=== PATIENT | female | born 1995 | race Caucasian/White ===

== ENCOUNTER 2017-08-05 05:10 | Emergency (ER) | payer OTHER ==
[2017-08-05 05:36] VITALS: BMI 28.1
--- NOTE | 2017-08-05 06:19 | PDOC ---
History of Present Illness - General History Source: Patient Exam Limitations: No Limitations - History of Present Illness Initial Comments: 08/05/17 06:26 The patient is a 21 year old female, 26 weeks , with no other significant past medical history, who presents with chills, subjective fever, generalized body aches, cough and sore throat for 3 days. She reports her upper extremities are weak and sore. She denies abdominal pain. She denies sick contacts. Allergies: NKDA <Lety Pierre - Last Filed: 08/05/17 06:26> <Rosetta Rojas - Last Filed: 08/05/17 06:45> - General Chief Complaint: Sore Throat Stated Complaint: FEVER,THROAT PAIN Time Seen by Provider: 08/05/17 05:24 Past History - Suicide/Smoking/Psychosocial Hx Smoking History: Never smoked Have you smoked in the past 12 months: No Information on smoking cessation initiated: No Hx Alcohol Use: No Drug/Substance Use Hx: No <Rosetta Rojas - Last Filed: 08/05/17 06:45> Review of Systems - Review of Systems Able to Perform ROS?: Yes Comments:: 08/05/17 06:34 GENERAL/CONSTITUTIONAL: (+) subjective fever, chills and generalized weakness. HEAD, EYES, EARS, NOSE AND THROAT: (+) sore throat. No change in vision. No ear pain or discharge. CARDIOVASCULAR: No chest pain or shortness of breath. RESPIRATORY: (+) cough, No wheezing, or hemoptysis. GASTROINTESTINAL: No nausea, vomiting, diarrhea or constipation. GENITOURINARY: No dysuria, frequency, or change in urination. MUSCULOSKELETAL: (+) diffuse body aches and upper extremity "weakness". No joint or muscle swelling. No neck or back pain. SKIN: No rash NEUROLOGIC: No headache, vertigo, loss of consciousness, or change in strength/ sensation. ENDOCRINE: No increased thirst. No abnormal weight change. HEMATOLOGIC/LYMPHATIC: No anemia, easy bleeding, or history of blood clots. ALLERGIC/IMMUNOLOGIC: No hives or skin allergy. <Lety Pierre - Last Filed: 08/05/17 06:26> *Physical Exam - Vital Signs Last Vital Signs Temp Pulse Resp BP Pulse Ox 100.2 F H 118 H 20 135/74 97 08/05/17 05:34 08/05/17 05:34 08/05/17 05:34 08/05/17 05:34 08/05/17 05:34 - Physical Exam Comments: 08/05/17 06:36 GENERAL: Awake, alert, and fully oriented, in no acute distress HEAD: No signs of trauma EYES: PERRLA, EOMI, sclera anicteric, conjunctiva clear ENT: (+) nasal congestion. Auricles normal inspection, hearing grossly normal, nares patent, oropharynx clear without exudates. Moist mucosa NECK: Normal ROM, supple, no lymphadenopathy, JVD, or masses LUNGS: Breath sounds equal, clear to auscultation bilaterally. No wheezes, and no crackles HEART: Regular rate and rhythm, normal S1 and S2, no murmurs, rubs or gallops ABDOMEN: Soft, nontender, normoactive bowel sounds. No guarding, no rebound. No masses EXTREMITIES: Normal range of motion, no edema. No clubbing or cyanosis. No cords, erythema, or tenderness NEUROLOGICAL: Cranial nerves II through XII grossly intact. Normal speech, normal gait SKIN: Warm, Dry, normal turgor, no rashes or lesions noted. <Lety Pierre - Last Filed: 08/05/17 06:26> - Vital Signs Last Vital Signs Temp Pulse Resp BP Pulse Ox 100.2 F H 118 H 20 135/74 97 08/05/17 05:34 08/05/17 05:34 08/05/17 05:34 08/05/17 05:34 08/05/17 05:34 <Rosetta Rojas - Last Filed: 08/05/17 06:45> Medical Decision Making - Medical Decision Making 08/05/17 06:43 Pt is and tachycardic and she has sore throat and nasal congestion. Last dose of tylenol was at 10PM. She will be given tylenol here. SHe is eating and drinking sufficiently. No need for IVNSS or blood tests at this time. Pt will get strep culture. No flu cultures available in the hospital at this time. Pt will be signed out to the day team. <Rosetta Rojas - Last Filed: 08/05/17 06:45> *DC/Admit/Observation/Transfer - Attestations Scribe Attestion: 08/05/17 06:36 Documentation prepared by Lety Pierre, acting as medical genetics director for Rosetta Rojas MD <Lety Pierre - Last Filed: 08/05/17 06:26> <Rosetta Rojas - Last Filed: 08/05/17 06:45> - Referrals Referrals: Sharita Estrella PA [Primary Care Provider] - - Patient Instructions - Post Discharge Activity
[2017-08-05] MEDS ORDERED: ACETAMINOPHEN 325 MG TABLET (FP) PO ONE (06:25)
[2017-08-05 07:53] LABS: URINE APPEARANCE CLEAR; URINE BILIRUBIN NEGATIVE (NEGATIVE); URINE BLOOD NEGATIVE (NEGATIVE); URINE COLOR YELLOW; URINE GLUCOSE (UA) NEGATIVE (NEGATIVE); URINE KETONE NEGATIVE (NEGATIVE); URINE LEUK ESTERASE NEGATIVE (NEGATIVE); URINE NITRITE NEGATIVE (NEGATIVE); URINE UROBILINOGEN NEGATIVE mg/dL (0.2-1.0)
[2017-08-05 07:54] LABS: URINE PROTEIN 1+ (NEGATIVE)
[2017-08-05 07:55] LABS: EPI CELLS RARE /HPF (FEW); URINE MUCUS RARE
[2017-08-05] MEDS ORDERED: SODIUM CHLORIDE FOR INHALATION 3 ML VIAL.NEB IH ONE (07:59)
--- NOTE | 2017-08-05 07:59 | PDOC ---
*Physical Exam - Vital Signs Last Vital Signs Temp Pulse Resp BP Pulse Ox 100.2 F H 118 H 20 135/74 97 08/05/17 05:34 08/05/17 05:34 08/05/17 05:34 08/05/17 05:34 08/05/17 05:34 - Physical Exam Comments: 08/05/17 07:48 low-grade fever 100.2 at triage, RR normal, O2 98% on room air well appearing, nasal congestion throat clear, no exudate or swelling + Submandibular LAD, neck supple lungs clear, heart normal abd gravid but nontender no edema no rash/extremity swelling Medical Decision Making - Medical Decision Making 08/05/17 07:52 Received signout on this healthy 21-year-old female at 26 weeks gestation of otherwise uneventful who presents with 3 days of upper respiratory infection symptoms with nasal congestion/rhinorrhea, cough with occasional sputum, chills and body aches. Has been taking Tylenol with only temporary relief, presents for evaluation. No recent travel, no known sick contacts, did not get influenza vaccinations. Low-grade fever, normal O2 sat lungs clear, throat clear 21y/o F woman with URI sxs, bodyaches, fever for 3 days. Viral appearing without evidence of strep pharyngitis or pneumonia, could very well be consistent with influenza. Flus swab, Throat swab tylenol for fever saline nebulizer reassess, then will proceed to L+D for monitoring. 08/05/17 08:47 influenza A positive. feels better after tylenol and nebs, VS remain stable. Discussed precautions, will start tamiflu therapy, transfer to L+D for monitoring. *DC/Admit/Observation/Transfer Diagnosis at time of Disposition: Influenza A Upper respiratory infection Qualifiers: URI type: unspecified URI Qualified Code(s): J06.9 - Acute upper respiratory infection, unspecified - Discharge Dispostion Disposition: HOME Condition at time of disposition: Stable - Prescriptions Prescriptions: Oseltamivir Phosphate [Tamiflu] 75 mg PO BID #10 capsule - Referrals Referrals: Sharita Estrella PA [Primary Care Provider] - - Patient Instructions Printed Discharge Instructions: DI for Influenza -- Adult Additional Instructions: Activity as tolerated. Stay hydrated. Tylenol 1000 mg every 8 hours as needed for fever/pain. Tests today confirm POSITIVE INFLUENZA A. Take Tamiflu as prescribed for 5 days. Use saline sprays/air humidifier to help with congestion. Influenza is contagious, so take precautions as discussed. Continue your medications as previously prescribed by your physician. You are going directly to the Labor and Delivery floor for monitoring - Instructions as per MATERIAL EXPEDITER. You should follow up with your primary doctor and MATERIAL EXPEDITER as soon as possible regarding today's emergency department visit. Return to the emergency department for any new or concerning symptoms, particularly persistent or high fevers, difficulty breathing or chest pain, severe weakness, cramping or bleeding. - Post Discharge Activity
[2017-08-05] MEDS ORDERED: OSELTAMIVIR PHOSPHATE 75 MG CAPSULE PO ONE (08:05)
[2017-08-05] MEDS ORDERED: OSELTAMIVIR PHOSPHATE 75 MG CAPSULE ONE (08:32)
[2017-08-05 10:06] VITALS: BP 105/75; PULSE 105; TEMP 99.6
== END 2017-08-05 10:05 | disposition home or self-care (01) ==
LOC: JER 05:10
PROC: 3E0F7GC Introduction of Other Therapeutic Substance into Respiratory Tract, Via Natural or Artificial Opening (ICD-10-PCS; principal; 2017-08-05)
DX: O99.89 Other specified diseases and conditions complicating pregnancy, childbirth and the puerperium (principal); O98.512 Other viral diseases complicating pregnancy, second trimester; J10.1 Influenza due to other identified influenza virus with other respiratory manifestations; J06.9 Acute upper respiratory infection, unspecified; Z3A.26 26 weeks gestation of pregnancy
CPT/HCPCS: 81003; 81015; 87070; 87086; 87430; 87804; 94640; 99283-25

== ENCOUNTER 2017-11-19 09:45 | Inpatient (IN) | payer OTHER ==
--- NOTE | 2017-11-19 10:33 | PN ---
Progress Note (short form) - Note Progress Note: cx 3 cm, 8-0 vx -2 mi, fhr cat 1, irregular contraction
--- NOTE | 2017-11-19 10:42 | HP ---
Past Medical History - Primary Care Physician PCP:: Aleksandar Ford - Admission Chief Complaint: 40.2 weeks, labor History of Present Illness: 22 yo f 40,2 weeks, c/o contraction since midnight today, no rom, no bleeding . cx 3 cm 80 vx -2 mi, fhr cat 1, irregular contraction, care [facility] , no complication History Source: Patient Limitations to Obtaining History: Language Barrier - Past Medical History ...: 1 ...Para: 0 ...EDC by Sono: 11/15/17 Infectious Disease: Yes: Other (txed for flu with Tamiflu) - Past Surgical History Hx Myomectomy: No Hx Transabdominal Cerclage: No - Smoking History Smoking history: Never smoked Have you smoked in the past 12 months: No - Alcohol/Substance Use Hx Alcohol Use: No - Social History Usual Living Arrangement: Yes: With Spouse History of Recent Travel: No Home Medications - Allergies Allergies/Adverse Reactions: Allergies Allergy/AdvReac Type Severity Reaction Status Date / Time No Known Allergies Allergy Verified 08/05/17 07:05 - Home Medications Home Medications: Ambulatory Orders Oseltamivir Phosphate [Tamiflu] 75 mg PO BID #10 capsule 08/05/17 Review of Systems - Review of Systems Constitutional: reports: No Symptoms Eyes: reports: No Symptoms HENT: reports: No Symptoms Neck: reports: No Symptoms Cardiovascular: reports: No Symptoms Respiratory: reports: No Symptoms Gastrointestinal: reports: No Symptoms Genitourinary: reports: No Symptoms Breasts: reports: No Symptoms Reported Musculoskeletal: reports: No Symptoms Integumentary: reports: No Symptoms Neurological: reports: No Symptoms Endocrine: reports: No Symptoms Hematology/Lymphatic: reports: No Symptoms Psychiatric: reports: No Symptoms Physical Exam - Maternity Constitutional: Yes: Well Nourished, No Distress, Calm Eyes: Yes: WNL, Conjunctiva Clear, EOM Intact HENT: Yes: WNL, Atraumatic, Normocephalic Neck: Yes: WNL, Supple, Trachea Midline Cardiovascular: Yes: WNL, Regular Rate and Rhythm Breast(s): Yes: WNL - Abdominal Exam/OB Fundal Height: 40 Number of Fetuses: Single Presentation: Vertex Contractions: Yes Regularity: Irregular Intensity: Moderate Monitor Mode: External Heart Rate Location: [facility] Category: I Accelerations: Uniform Decelerations: None - Vaginal Exam/OB Vaginal Bleediing: Bloody Show Speculum Exam: No Dilatation (cm): 3 cm Effacement (%): 80 Amniotic Membrane Status: Intact Presentation: Vertex/Position Station: -2 - Physical Exam Musculoskeletal: Yes: WNL Extremities: Yes: WNL Edema: LLE: Trace, RLE: Trace Deep Tendon Reflex Grade: Normal +2 ...Motor Strength: WNL Psychiatric: Yes: WNL Hemorrhage Risk Assessment - Risk Factors Medium Risk Factors: Yes: None High Risk Factors: Yes: None Risk Score: 1 Risk Level: Medium Risk Problem List - Problems (1) Post term over 40 weeks Code(s): O48.0 - POST-TERM (2) Labor established Code(s): MPE0605 - Assessment/Plan admit, fhm, pain mamnagement, admit for vaginal delivery
[2017-11-19] MEDS ORDERED: BUTORPHANOL TARTRATE 1 MG/ML VIAL IVPUSH ONE (10:45)
[2017-11-19] MEDS ORDERED: PROMETHAZINE HCL 25 MG/1 ML VIAL IVPUSH ONE (10:45)
[2017-11-19] MEDS ORDERED: DEXTROSE 5%-LACTATED RINGERS 1,000 ML IV SCH (10:45)
[2017-11-19] MEDS ORDERED: PROMETHAZINE HCL 25 MG/1 ML VIAL IVPB ONE (11:00)
[2017-11-19 11:23] VITALS: BMI 32.1
[2017-11-19 11:26] LABS: BASO % 0.1 % (0-2.0); EOS % 0.5 % (0-4.5); HEMATOCRIT 36.4 % (32.4-45.2); MCH 29.7 pg (25.7-33.7); MEAN PLT VOLUME 9.2 fl (7.5-11.1); MONO % 3.6 % (3.8-10.2); NEUT % 86.8 % (42.8-82.8); PLATELET COUNT 216 K/MM3 (134-434); RBC 4.05 M/mm3 (3.60-5.2); RDW 16.1 % (11.6-15.6)
[2017-11-19] MEDS ORDERED: OXYTOCIN 30 UNITS in 0.9% NS 30 UNIT/500 ML INFUS.BAG IVPB ONE ×2 (11:40→12:23)
[2017-11-19 11:48] LABS: INR 0.96 (0.82-1.09); PROTHROMBIN TIME (PATIENT) 10.9 SEC (9.7-13.0)
[2017-11-19 11:51] LABS: ACTIVATED PTT 26.7 SECONDS (26.9-34.4)
[2017-11-19 12:20] LABS: ANION GAP 13 (8-16); BLOOD UREA NITROGEN 12 mg/dL (7-18); CALCIUM 9.4 mg/dL (8.5-10.1); CHLORIDE 106 mmol/L (98-107); CO2 22 mmol/L (21-32); CREATININE 0.7 mg/dL (0.55-1.02); GLUCOSE,RANDOM 117 mg/dL (74-106); POTASSIUM 4.3 mmol/L (3.5-5.1); SODIUM 141 mmol/L (136-145)
[2017-11-19] MEDS ORDERED: OXYTOCIN 30 UNITS in 0.9% NS 30 UNIT/500 ML INFUS.BAG IVPB SCH (14:00)
[2017-11-19] MEDS ORDERED: BUTORPHANOL TARTRATE 1 MG/ML VIAL ONE ×2 (14:55)
[2017-11-19] MEDS ORDERED: PROMETHAZINE HCL 25 MG/1 ML VIAL ONE (14:56)
--- NOTE | 2017-11-19 18:27 | PN ---
Progress Note (short form) - Note Progress Note: 450 pm, cx 5 cm 80 vx -2 srom clear , fhr cat 1, regular contraction Problem List - Problems (1) Post term over 40 weeks Code(s): O48.0 - POST-TERM (2) Labor established Code(s): [id number] -
--- NOTE | 2017-11-19 19:54 | PN ---
Progress Note (short form) - Note Progress Note: cx 6 cm 80 vx -1, fhr cat1 Problem List - Problems (1) Post term over 40 weeks Code(s): O48.0 - POST-TERM (2) Labor established Code(s): [id number] -
[2017-11-19] MEDS ORDERED: FENTANYL/BUPIVACAINE/NS/PF - PCEA - 50 ML DISP.SYRIN EP ONE (19:57)
[2017-11-19] MEDS ORDERED: ELECTROLYTE-148 SOLN 1,000 ML IV SCH (20:00)
[2017-11-19] MEDS ORDERED: NALOXONE HCL 0.4 MG/ML VIAL IVPUSH PRN (20:41)
[2017-11-19] MEDS ORDERED: FENTANYL/BUPIVACAINE/NS/PF - PCEA - 50 ML DISP.SYRIN EP SCH (20:45)
[2017-11-19] MEDS ORDERED: AMPICILLIN SODIUM 2 GM VIAL ONE (21:34)
[2017-11-19] MEDS ORDERED: LIDOCAINE HCL 1% PRESERVATIVE FREE - 30ML VIAL ONE (21:34)
[2017-11-19] MEDS ORDERED: AMPICILLIN - 2 GM in SODIUM CHLORIDE 100 ML IVPB ONE (21:35)
[2017-11-19] MEDS ORDERED: OXYTOCIN 20 UNITS in 0.9% NS 20 UNIT/1,000 ML INFUS.BAG IV ONE (21:35)
[2017-11-19] MEDS ORDERED: ACETAMINOPHEN 325 MG TABLET (FP) PO ONE (22:17)
[2017-11-19] MEDS ORDERED: ACETAMINOPHEN 325 MG TABLET (FP) ONE (22:18)
--- NOTE | 2017-11-19 22:20 | PN ---
Progress Note (short form) - Note Progress Note: cx full 100 vx 0 , mr, fhr 160/170 with good BTB variability , had temp 100.1 , gbs negative , 2 gm amp given , tylenol prn , Problem List - Problems (1) Post term over 40 weeks Code(s): O48.0 - POST-TERM (2) Labor established Code(s): [id number] -
--- NOTE | 2017-11-19 22:57 | PN ---
Progress Note (short form) - Note Progress Note: full 100 2+ pushing, fhr cat2 with good variability, expect delivery soon Problem List - Problems (1) Post term over 40 weeks Code(s): O48.0 - POST-TERM (2) Labor established Code(s): [id number] -
[2017-11-20] MEDS ORDERED: BENZOCAINE 20% 57 GM BOTTLE TP PRN (00:05)
[2017-11-20] MEDS ORDERED: WITCH HAZEL 50% (TUCKS) 40 PAD/JAR PAD TP PRN (00:05)
[2017-11-20] MEDS ORDERED: BENZOCAINE 28 GM HEMORRHOIDAL OINTMENT TP PRN (00:05)
[2017-11-20] MEDS ORDERED: ACETAMINOPHEN 325 MG TABLET (FP) PO PRN (00:05)
[2017-11-20] MEDS ORDERED: BISACODYL 10 MG SUPP.RECT RC PRN (00:05)
[2017-11-20] MEDS ORDERED: oxyCODONE HCL 5 MG TABLET PO PRN (00:05)
[2017-11-20] MEDS ORDERED: METHYLERGONOVINE MALEATE 0.2 MG/1 ML AMP IM PRN (00:05)
[2017-11-20] MEDS ORDERED: OXYTOCIN 20 UNITS in 0.9% NS 20 UNIT/1,000 ML INFUS.BAG IV SCH (00:15)
[2017-11-20] MEDS ORDERED: D5W-LR W/ 20 UNITS OXYTOCIN 20 UNIT/1,000 ML INFUS.BAG IV SCH (00:15)
[2017-11-20 00:35] LABS: ARTERIAL BLOOD GAS BASE EXCESS -8.9 meq/l (-2-2); ARTERIAL BLOOD GAS PCO2 54.2 mmHg (35-45)
[2017-11-20 00:42] LABS: VENOUS PC02 49.3 mmHg (38-52); VENOUS PH 7.26 (7.32-7.42); VENOUS PO2 25.8 mmHg (28-48)
[2017-11-20 00:43] LABS: ARTERIAL BLOOD GAS pH 7.19 (7.35-7.45)
[2017-11-20 00:44] LABS: ARTERIAL BLD GAS O2 SATURATION 27.7 % (90-98.9); ARTERIAL BLOOD GAS PO2 20.9 mmHg (80-100)
[2017-11-20] MEDS: IBUPROFEN 600 MG TABLET (FP) PO PRN ×2 (00:48→20:40)
[2017-11-20] MEDS ORDERED: IBUPROFEN 600 MG TABLET (FP) PO ONE (00:54)
[2017-11-20] MEDS ORDERED: OXYTOCIN 20 UNITS in 0.9% NS 20 UNIT/1,000 ML INFUS.BAG IV ONE (02:25)
[2017-11-20] MEDS: CEFAZOLIN 1 GM/D5W 1 GM/50 ML BAG IVPB SCH ×4 (03:06→20:29)
[2017-11-20] MEDS: FERROUS SO4 325 MG TABLET (FP) PO SCH ×2 (07:51→17:32)
[2017-11-20] MEDS: PRENATAL VITAMINS W/ FOLIC ACID TABLET (FP) PO SCH (10:14)
--- NOTE | 2017-11-20 11:11 | PN ---
Post Progress Note - Subjective Subjective: c/o perineal soreness no fever after delivery Post Day: 1 Type of Delivery: Vital Signs: Vital Signs Temperature 98.6 F 11/20/17 09:29 Pulse Rate 95 H 11/20/17 09:29 Respiratory Rate 20 11/20/17 09:29 Blood Pressure 119/69 11/20/17 09:29 O2 Sat by Pulse Oximetry (%) 100 11/20/17 02:00 Breast Exam: Yes: Soft, Other (plans to BF ). No: Engorged Uterus: Yes: Fundus Firm, Fundus below umbilicus, Non-tender Lochia: Yes: Rubra Lochia, amount: Moderate (not foul smelling) Extremities: Yes: Calves non-tender Perineum: Yes: Intact Activity: Ambulating - Labs Labs: CBC WBC 13.0 K/mm3 (4.0-10.0) H 11/19/17 10:58 RBC 4.05 M/mm3 (3.60-5.2) 11/19/17 10:58 Hgb 12.0 GM/dL (10.7-15.3) 11/19/17 10:58 Hct 36.4 % (32.4-45.2) 11/19/17 10:58 MCV 90.0 fl (80-96) 11/19/17 10:58 MCH 29.7 pg (25.7-33.7) 11/19/17 10:58 MCHC 33.0 g/dl (32.0-36.0) 11/19/17 10:58 RDW 16.1 % (11.6-15.6) H 11/19/17 10:58 Plt Count 216 K/MM3 (134-434) 11/19/17 10:58 MPV 9.2 fl (7.5-11.1) 11/19/17 10:58 Neutrophils % 86.8 % (42.8-82.8) H 11/19/17 10:58 Lymphocytes % 9.0 % (8-40) 11/19/17 10:58 Monocytes % 3.6 % (3.8-10.2) L 11/19/17 10:58 Eosinophils % 0.5 % (0-4.5) 11/19/17 10:58 Basophils % 0.1 % (0-2.0) 11/19/17 10:58 Assessment/Plan s/p vaginal delivery s/o intrapartum fever, T max 101.2, 100.7 , now afebrile doubt about endomyometritis d/c iv after next dose antibiiotics pp cbc pending
[2017-11-20 13:32] LABS: BASO % 0.1 % (0-2.0); EOS % 0.1 % (0-4.5); HEMATOCRIT 27.9 % (32.4-45.2); HEMOGLOBIN 9.2 GM/dL (10.7-15.3); LYMPH % 5.4 % (8-40); MCH 29.6 pg (25.7-33.7); MCHC 33.2 g/dl (32.0-36.0); MEAN CELL VOLUME 89.3 fl (80-96); MEAN PLT VOLUME 8.9 fl (7.5-11.1); MONO % 3.3 % (3.8-10.2); NEUT % 91.1 % (42.8-82.8); PLATELET COUNT 201 K/MM3 (134-434); RBC 3.12 M/mm3 (3.60-5.2); WHITE BLOOD COUNT 17.1 K/mm3 (4.0-10.0)
[2017-11-21] MEDS: CEFAZOLIN 1 GM/D5W 1 GM/50 ML BAG IVPB SCH ×2 (02:25→09:02)
[2017-11-21] MEDS: FERROUS SO4 325 MG TABLET (FP) PO SCH ×2 (07:32→17:16)
[2017-11-21 07:38] LABS: BASO % 0.2 % (0-2.0); EOS % 1.5 % (0-4.5); HEMATOCRIT 23.3 % (32.4-45.2); HEMOGLOBIN 7.8 GM/dL (10.7-15.3); LYMPH % 14.6 % (8-40); MCH 30.3 pg (25.7-33.7); MCHC 33.6 g/dl (32.0-36.0); MEAN CELL VOLUME 90.1 fl (80-96); MEAN PLT VOLUME 9.2 fl (7.5-11.1); MONO % 3.9 % (3.8-10.2); NEUT % 79.8 % (42.8-82.8); PLATELET COUNT 166 K/MM3 (134-434); RBC 2.59 M/mm3 (3.60-5.2); RDW 16.4 % (11.6-15.6); WHITE BLOOD COUNT 12.8 K/mm3 (4.0-10.0)
[2017-11-21] MEDS: PRENATAL VITAMINS W/ FOLIC ACID TABLET (FP) PO SCH (09:01)
[2017-11-21 14:18] VITALS: BP 117/71; PULSE 95; TEMP 98.5
[2017-11-21] MEDS ORDERED: SENNOSIDES/DOCUSATE COMBO (SENNA PLUS) TABLET (UD) PO PRN (22:00)
--- NOTE | 2017-11-22 00:21 | DS ---
Physical Exam-SIGNALMAN Vital Signs: Vital Signs Temperature 98.5 F 11/21/17 14:00 Pulse Rate 95 H 11/21/17 14:00 Respiratory Rate 18 11/21/17 14:00 Blood Pressure 117/71 11/21/17 14:00 O2 Sat by Pulse Oximetry (%) 100 11/20/17 02:00 Constitutional: Yes: Well Nourished Eyes: Yes: Conjunctiva Clear HENT: Yes: Atraumatic Neck: Yes: Supple Cardiovascular: Yes: Regular Rate and Rhythm Respiratory: Yes: Regular Gastrointestinal: Yes: Normal Bowel Sounds External Genitalia: Yes: Normal Vaginal Exam: Yes: Normal Cervix: Yes: Normal Uterus: Yes: Firm ....Post : Yes: Uterus firm, Moderate lochia serosa Breast(s): Yes: WNL Musculoskeletal: Yes: WNL Extremities: Yes: WNL Neurological: Yes: Alert, Oriented ...Motor Strength: WNL Psychiatric: Yes: Alert, Oriented Labs: CBC, BMP 11/21/17 06:43 11/19/17 10:58 Delivery - Delivery Type of Anesthesia: Local, Epidural Episiotomy/Laceration: Midline EBL (cc): 500 Delivery, Single - Stages of Labor Date 1st Stage Initiatied: 11/19/17 Time 1st Stage Initiated: 08:00 Date 2nd Stage Initiated: 11/19/17 Time 2nd Stage Initiated: 22:50 Date of Delivery: 11/19/17 Time of Delivery: 23:44 Time Placenta Delivered: 23:57 - Condition of Anesthesiologist/Physician/Dispatch Coordinator Present: Yes Name: Vi Covington Gender: Female Weight: 7 lb 10 oz Position: Left, OA Total Hours ROM (Hrs/Mins): 7hrs 7min - 1 Minute Total Score: 9 5 Minutes Total Score: 9 - [place] Feeding Plan Initial Plan: Elected not to breastfeed exclusively throughout hospitalization Discharge Summary Reason For Visit: LABOR Procedures: Principal: Normal spontaneous vaginal delivery Hospital Course: Routine care. No additional dosage of antibiotic, no blood transfusion required. Condition: Good - Instructions Diet, Activity, Other Instructions: Regular diet No douching, no sexual intercourse x 6 weeks. F/U in clinic in 6 weeks call [facility] for appointment. [phone] Disposition: HOME - Home Medications Comprehensive Discharge Medication List: Ambulatory Orders Oseltamivir Phosphate [Tamiflu] 75 mg PO BID #10 capsule 08/05/17 Vit No.129/Iron/Folic [ One Daily Tablet] 1 tablet PO DAILY
--- NOTE | 2017-11-26 10:17 | PATH ---
Surgical Pathology Report Patient Name: COLIN BRAN [facility]. Rec. #: [id number] /Age/Gender: 1995 (Age: 22) / F Account: [id number] Location: [facility] OBS/DUTY MANAGER Taken: 11/19/2017 Received: 11/20/2017 Reported: 11/26/2017 Physicians: Aleksandar Ford M.D. Specimen(s) Received PLACENTA Clinical History , 40.4 weeks, maternal temp during labor-intrapartum Final Diagnosis PLACENTA, DELIVERY: 510 G THIRD TRIMESTER PLACENTA WITH TRIVASCULAR UMBILICAL CORD, MODERATE ACUTE CHORIOAMNIONITIS AND MILD ACUTE FUNISITIS (UMBILICAL PHLEBITIS). Electronically Signed Dawna Mcrae M.D. Gross Description The specimen is received fresh labeled placenta and is a 510 gram, 18.0 x 14.5 x 2.8 cm. placenta with attached membranes and umbilical cord. The attached membranes are rodrigez, thick, cloudy and insert marginally. The umbilical cord measures 14 cm. in length and averages 1.2 cm. in diameter. The cord inserts eccentrically, 4.5 cm. to the nearest margin. No true knots or strictures are identified. Cut surface of the umbilical cord reveals 3 vessels. The surface is heredia-blue with minimal fibrin deposition and appropriate caliber vessels. The maternal surface is red-brown with focal defects. Sectioning reveals red-brown, spongy parenchyma. No lesions are identified. Leather Lacer sections are submitted in three cassettes as follows: 1- membrane rolls and umbilical cord; 2-3- full thickness sections of placenta. 11/23/[address] [facility]
== END 2017-11-21 22:15 | disposition home or self-care (01) | DRG 560 ==
LOC: JLDR 09:45 → J3W 11-20 02:40
PROVIDERS: ADMIT Obstetrics & Gynecology; ATTEND Obstetrics & Gynecology
PROC: 10E0XZZ Delivery of Products of Conception, External Approach (ICD-10-PCS; principal; 2017-11-19)
DX: O48.0 Post-term pregnancy (principal); O75.2 Pyrexia during labor, not elsewhere classified; Z3A.40 40 weeks gestation of pregnancy; Z37.0 Single live birth
CPT/HCPCS: 36415; 36600; 59409; 80048; 82803; 85025; 85610; 85730; 86593; 86850; 86900; 86901; 87070; 87205; 88307-TC

== ENCOUNTER 2019-06-20 00:57 | Inpatient (IN) | payer OTHER ==
[2019-06-20 01:06] VITALS: BMI 36.2
--- NOTE | 2019-06-20 01:19 | PDOC ---
History of Present Illness - General Chief Complaint: Labor Assessment Stated Complaint: PAIN INSTOMACH - History of Present Illness Initial Comments: 06/20/19 01:14 23 yo , Aborta 1, at 39 wga who p/w crampy lower abdominal pain. Patient reports intermittent, crampy, lower abdominal/pelvic pain beginning 06/17/19. Presents with 1 hour worsening crampy, lower abdominal pain, with no identifiable triggers or alleviators. Pain intermittent every 30 minutes resolving spontaneously after seconds. Denies abdominal trauma, or asx. complaints. 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 Has received routine care throughout this . Patient denies CARDOZO, vision change, palpitations, cough, wheezing, orthopena, PND , leg swelling/pain, N/V, F,C, CP, SOB, urinary complaints, hematuria, BPR, diarrhea, constipation, vaginal bleeding/discharge, lightheadedness, weakness, sensory changes. PMHx: as noted above ROS: as noted SHx: Denies Etoh, IVDA, tobacco use Allergies: NKDA Past History - Past Medical History Allergies/Adverse Reactions: Allergies Allergy/AdvReac Type Severity Reaction Status Date / Time No Known Allergies Allergy Verified 06/20/19 01:06 Home Medications: Ambulatory Orders Vitamins (Sjr) - 1 tab PO DAILY 06/20/19 Asthma: No Cancer: No Cardiac Disorders: No COPD: No Diabetes: No HTN: No Seizures: No Thyroid Disease: No - Surgical History Cholecystectomy: Yes - Immunization History Immunization Up to Date: Yes - Psycho Social/Smoking Cessation Hx Smoking History: Never smoked Have you smoked in the past 12 months: No Hx Alcohol Use: No Drug/Substance Use Hx: No Substance Use Type: None Hx Substance Use Treatment: No Review of Systems - Review of Systems Comments:: 06/20/19 01:19 GENERAL/CONSTITUTIONAL: No fever or chills. No weakness. HEAD, EYES, EARS, NOSE AND THROAT: No change in vision. No ear pain or discharge. No sore throat. CARDIOVASCULAR: No chest pain or shortness of breath RESPIRATORY: No cough, wheezing, or hemoptysis. GASTROINTESTINAL: + Abdominal pain. No nausea, vomiting, diarrhea or constipation. GENITOURINARY: No dysuria, frequency, or change in urination. MUSCULOSKELETAL: No joint or muscle swelling or pain. No neck or back pain. SKIN: No rash NEUROLOGIC: No headache, vertigo, loss of consciousness, or change in strength/ sensation. ENDOCRINE: No increased thirst. No abnormal weight change HEMATOLOGIC/LYMPHATIC: No anemia, easy bleeding, or history of blood clots. ALLERGIC/IMMUNOLOGIC: No hives or skin allergy. *Physical Exam - Vital Signs Last Vital Signs Temp Pulse Resp BP Pulse Ox 98.4 F 92 H 18 145/73 96 06/20/19 01:04 06/20/19 01:04 06/20/19 01:04 06/20/19 01:04 06/20/19 01:04 - Physical Exam Comments: 06/20/19 01:19 GENERAL: Awake, alert, and fully oriented, in no acute distress HEAD: No signs of trauma, normocephalic, atraumatic EYES: PERRLA, EOMI, sclera anicteric, conjunctiva clear ENT: Auricles normal inspection, hearing grossly normal, nares patent, oropharynx clear without exudates. Moist mucosa NECK: Normal ROM, supple, no lymphadenopathy, JVD, or masses LUNGS: No distress, speaks full sentences, clear to auscultation bilaterally HEART: Regular rate and rhythm, normal S1 and S2, no murmurs, rubs or gallops, peripheral pulses normal and equal bilaterally. ABDOMEN: Soft, nontender, normoactive bowel sounds. No guarding, no rebound. No masses EXTREMITIES : Normal inspection, Normal range of motion, no edema. No clubbing or cyanosis NEUROLOGICAL: Cranial nerves II through XII grossly intact. Normal speech, normal gait, no focal sensorimotor deficits SKIN: Warm, Dry, normal turgor, no rashes or lesions noted Medical Decision Making - Medical Decision Making 06/20/19 01:19 23 yo , Aborta 1, at 39 wga who p/w 2 hours of intermittent, crampy, lower abdominal/pelvic Q 30 minutes pain beginning 06/17/19. Vitals wnl, AF, A&Ox3. Currently asymptomatic. Physical exam unremarkable. Patient sent to labor and delivery for labor assesment, admission. Discharge - Discharge Information Problems reviewed: Yes Clinical Impression/Diagnosis: Abdominal pain affecting Condition: Stable - Admission No - Follow up/Referral Referrals: Babak Patton MD [Primary Care Provider] - - Patient Discharge Instructions Patient Printed Discharge Instructions: DI for Labor and Delivery, Vaginal Additional Instructions: Please return to the emergency department with any new or worsening symptoms or concerns. Please follow up with your hr administrator and primary care physician within 72 hours. - Post Discharge Activity
--- NOTE | 2019-06-20 01:20 | PDOC ---
Attending Attestation - Resident Resident Name: Daniel Mena - ED Attending Attestation I have performed the following: I have examined & evaluated the patient, The case was reviewed & discussed with the resident, I agree w/resident's findings & plan - HPI HPI: 06/20/19 01:18 Pt is , 39 week GA; she has been having contractions q30 min x 2 hrs. Comes to deliver child. No complaints. - Physicial Exam PE: 06/20/19 01:19 Agree with resident exam Pt afebrile A+Ox3 No vag bleed and no vag water breakage Pt has no abdominal tenderness and no contraction at this time. No flank pain. - Medical Decision Making 06/20/19 01:19 Pt sent up to L+D
[2019-06-20] MEDS ORDERED: AMPICILLIN - 2 GM in SODIUM CHLORIDE 100 ML IVPB STA (05:24)
[2019-06-20] MEDS: DEXTROSE 5%-LACTATED RINGERS 1,000 ML IV SCH ×2 (05:30→12:38)
[2019-06-20] MEDS ORDERED: AMPICILLIN SODIUM 2 GM VIAL ONE (05:41)
[2019-06-20] MEDS ORDERED: SODIUM CHLORIDE 100 ML IVPB ONE (05:41)
[2019-06-20 05:54] LABS: BASO % 0.3 % (0-2.0); EOS % 0.4 % (0-4.5); HEMATOCRIT 33.5 % (32.4-45.2); HEMOGLOBIN 11.5 GM/dL (10.7-15.3); LYMPH % 18.4 % (8-40); MCH 30.1 pg (25.7-33.7); MCHC 34.2 g/dl (32.0-36.0); MEAN PLT VOLUME 9.2 fl (7.5-11.1); MONO % 4.1 % (3.8-10.2); NEUT % 76.8 % (42.8-82.8); PLATELET COUNT 221 K/MM3 (134-434); RBC 3.81 M/mm3 (3.60-5.2); RDW 15.4 % (11.6-15.6); WHITE BLOOD COUNT 7.8 K/mm3 (4.0-10.0)
[2019-06-20 06:07] LABS: INR 0.97 (0.83-1.09); PROTHROMBIN TIME (PATIENT) 11.4 SEC (9.7-13.0)
[2019-06-20 06:10] LABS: ACTIVATED PTT 27.1 SECONDS (25.2-36.5)
[2019-06-20 06:15] LABS: BLOOD UREA NITROGEN 11.2 mg/dL (7-18); CALCIUM 9.8 mg/dL (8.5-10.1); CREATININE 0.7 mg/dL (0.55-1.3)
--- NOTE | 2019-06-20 06:45 | HP ---
Past Medical History - Admission Chief Complaint: Labor pain History of Present Illness: 23 yo @ 39 weeks gestation, EDC 06/23/19, admitted for labor pain. Upon admission she was 4cm dilated. History Source: Patient Limitations to Obtaining History: No Limitations - Past Medical History ...: 2 ...Para: 1 ...Term: 1 ...: 0 ...Spon : 0 ...Induced : 0 ...Multiple Gestation: 0 ...EDC by Sono: 06/23/19 Infectious Disease: Yes: Other (txed for flu with Tamiflu) - Past Surgical History Past Surgical History: Yes: None Hx Myomectomy: No Hx Transabdominal Cerclage: No - Smoking History Smoking history: Never smoked Have you smoked in the past 12 months: No - Alcohol/Substance Use Hx Alcohol Use: No History of Substance Use: reports: None - Social History Usual Living Arrangement: Yes: With Significant Other History of Recent Travel: No Home Medications - Allergies Allergies/Adverse Reactions: Allergies Allergy/AdvReac Type Severity Reaction Status Date / Time No Known Allergies Allergy Verified 06/20/19 01:06 - Home Medications Home Medications: Ambulatory Orders Vitamins (Sjr) - 1 tab PO DAILY 06/20/19 Family Medical History Family History: Unremarkable Review of Systems - Review of Systems Constitutional: reports: No Symptoms Eyes: reports: No Symptoms HENT: reports: No Symptoms Neck: reports: No Symptoms Cardiovascular: reports: No Symptoms Respiratory: reports: No Symptoms Gastrointestinal: reports: No Symptoms Genitourinary: reports: Pain Breasts: reports: No Symptoms Reported Musculoskeletal: reports: No Symptoms Neurological: reports: No Symptoms Psychiatric: reports: No Symptoms Pain Intensity: 4 Physical Exam - Maternity Vital Signs: Vital Signs Temperature 98.1 F 06/20/19 04:30 Pulse Rate 86 06/20/19 04:30 Respiratory Rate 20 06/20/19 04:30 Blood Pressure 129/76 06/20/19 04:30 O2 Sat by Pulse Oximetry (%) 96 06/20/19 01:04 Constitutional: Yes: Well Nourished Eyes: Yes: Conjunctiva Clear HENT: Yes: Atraumatic Neck: Yes: Supple Cardiovascular: Yes: Regular Rate and Rhythm Lungs: Clear to auscultation Breast(s): Yes: WNL - Abdominal Exam/OB Number of Fetuses: Single Presentation: Vertex Contractions: Yes Regularity: Irregular Intensity: Mild/Mod - Vaginal Exam/OB Vaginal Bleediing: No Dilatation (cm): 4 Effacement (%): 70 Amniotic Membrane Status: Ruptured Nitrazine Test: Positive Amniotic Fluid: Yes: Clear Presentation: Vertex/Position Station: -3 - Physical Exam Musculoskeletal: Yes: WNL Extremities: Yes: WNL Integumentary: Yes: WNL ...Motor Strength: WNL Psychiatric: Yes: Alert, Oriented - Labs Lab Results: CBC, BMP 06/20/19 05:45 06/20/19 05:45 Problem List - Problems (1) 39 weeks gestation of Problems reviewed: Yes Code(s): Z3A.39 - 39 WEEKS GESTATION OF Assessment/Plan 39 weeks gestation Labor pain Analgesia as needed Anticipate
[2019-06-20] MEDS ORDERED: OXYTOCIN 30 UNITS in 0.9% NS 30 UNIT/500 ML INFUS.BAG IVPB ONE (07:59)
[2019-06-20] MEDS ORDERED: LIDO 2%/EPI 1:200000 PRESRVFRE (20 ML SDVIAL) ONE (08:28)
[2019-06-20] MEDS ORDERED: FENTANYL/BUPIVACAINE/NS/PF - PCEA - 50 ML DISP.SYRIN EP ONE ×2 (08:51→13:14)
[2019-06-20] MEDS: OXYTOCIN 30 UNITS in 0.9% NS 30 UNIT/500 ML INFUS.BAG IVPB SCH (09:10)
[2019-06-20] MEDS ORDERED: NALOXONE HCL 0.4 MG/ML VIAL IVPUSH PRN (09:22)
[2019-06-20] MEDS ORDERED: FENTANYL/BUPIVACAINE/NS/PF - PCEA - 50 ML DISP.SYRIN EP SCH (09:30)
[2019-06-20] MEDS ORDERED: AMPICILLIN SODIUM 1 GM VIAL ONE (09:36)
[2019-06-20] MEDS: AMPICILLIN - 1 GM in SODIUM CHLORIDE 100 ML IVPB SCH ×2 (09:45→16:22)
[2019-06-20] MEDS ORDERED: TUBERCULIN PPD 5 TU/0.1ML SYRINGE (IN PATIENT USE ONLY) ID ONE (10:00)
[2019-06-20] MEDS: FENTANYL/BUPIVACAINE/NS/PF - PCEA - 50 ML DISP.SYRIN EP SCH (12:37)
[2019-06-20] MEDS ORDERED: LIDOCAINE HCL 1% PRESERVATIVE FREE - 30ML VIAL ONE (13:33)
[2019-06-20] MEDS ORDERED: OXYTOCIN 20 UNITS in 0.9% NS 20 UNIT/1,000 ML INFUS.BAG IV ONE (13:33)
[2019-06-20] MEDS ORDERED: OXYTOCIN 10 UNITS/ML VIAL IVPB ONE (14:30)
[2019-06-20] MEDS ORDERED: MEPERIDINE HCL 50 MG/ML VIAL IM ONE (14:30)
[2019-06-20] MEDS ORDERED: OXYTOCIN 10 UNITS/ML VIAL ONE (14:32)
[2019-06-20] MEDS ORDERED: BENZOCAINE 28 GM HEMORRHOIDAL OINTMENT TP PRN (14:49)
[2019-06-20] MEDS ORDERED: METHYLERGONOVINE MALEATE 0.2 MG/1 ML AMP IM PRN (14:49)
[2019-06-20] MEDS ORDERED: WITCH HAZEL 50% (TUCKS) 40 PAD/JAR PAD TP PRN (14:49)
[2019-06-20] MEDS ORDERED: BENZOCAINE 20% 57 GM BOTTLE TP PRN (14:49)
[2019-06-20] MEDS ORDERED: BISACODYL 10 MG SUPP.RECT RC PRN (14:49)
[2019-06-20] MEDS ORDERED: MEPERIDINE HCL 50 MG/ML VIAL ONE (14:58)
--- NOTE | 2019-06-20 15:04 | PN ---
Delivery - Delivery Vaginal Delivery: Spontaneous Type of Anesthesia: Epidural Episiotomy/Laceration: 2nd degree EBL (cc): 400 Delivery, Single - [place] Feeding Plan Initial Plan: Elected not to breastfeed exclusively throughout hospitalization Remarks - Remarks Remarks: Normal spontaneous vaginal delivery of a large infant over second degree laceration. After delivery of the head, there was evidence of shoulder dystocia. 2 nurses were flexing the hip and one nurse was giving suprapubic pressure. Nuchal cord x 1 noted and was clamped and cut. head was tuned to 180 degrees to allow delivery of the first shoulder. The fetus was then elevated superiorly to allow delivery of the other shoulder. The rest of the body was then delivered with the help of maternal effort. Baby was handed to the neonatology nurse. Laceration was repaired with 2.0 Chromic. Additional pitocin dosage was given to prevent hemorrhage.
[2019-06-20] MEDS: OXYTOCIN 20 UNITS in 0.9% NS 20 UNIT/1,000 ML INFUS.BAG IV SCH (16:23)
[2019-06-20] MEDS: ACETAMINOPHEN 325 MG TABLET (FP) PO PRN (21:14)
[2019-06-20] MEDS: FERROUS SO4 325 MG TABLET (FP) PO SCH (21:14)
[2019-06-20] MEDS: IBUPROFEN 600 MG TABLET (FP) PO PRN (21:15)
[2019-06-21] MEDS: ACETAMINOPHEN 325 MG TABLET (FP) PO PRN ×5 (05:06→22:09)
[2019-06-21] MEDS: IBUPROFEN 600 MG TABLET (FP) PO PRN ×5 (05:07→22:10)
[2019-06-21 07:58] LABS: BASO % 0.4 % (0-2.0); EOS % 0.2 % (0-4.5); HEMATOCRIT 24.7 % (32.4-45.2); HEMOGLOBIN 8.3 GM/dL (10.7-15.3); LYMPH % 12.5 % (8-40); MCH 29.8 pg (25.7-33.7); MCHC 33.5 g/dl (32.0-36.0); MEAN CELL VOLUME 88.8 fl (80-96); MEAN PLT VOLUME 9.1 fl (7.5-11.1); MONO % 4.4 % (3.8-10.2); NEUT % 82.5 % (42.8-82.8); PLATELET COUNT 184 K/MM3 (134-434); RBC 2.78 M/mm3 (3.60-5.2); RDW 15.9 % (11.6-15.6); WHITE BLOOD COUNT 12.1 K/mm3 (4.0-10.0)
[2019-06-21] MEDS: FERROUS SO4 325 MG TABLET (FP) PO SCH ×2 (09:22→22:09)
[2019-06-21] MEDS: PRENATAL VITAMINS W/ FOLIC ACID TABLET (FP) PO SCH (09:22)
--- NOTE | 2019-06-21 10:27 | PN ---
Post Progress Note Post Day: 1 Type of Delivery: Vital Signs: Vital Signs Temperature 98.1 F 06/21/19 09:00 Pulse Rate 93 H 06/21/19 09:00 Respiratory Rate 18 06/21/19 09:00 Blood Pressure 117/66 06/21/19 09:00 O2 Sat by Pulse Oximetry (%) 97 06/20/19 16:25 Breast Exam: Yes: Soft Uterus: Yes: Fundus Firm Abdomen/GI: Yes: Abdomen soft, Tolerating PO Lochia: Yes: Rubra Lochia, amount: Moderate Extremities: No: Calf tenderness Perineum: Yes: Laceration (healing) Activity: Other (She's out of bed to chair) - Labs Labs: CBC WBC 12.1 K/mm3 (4.0-10.0) H 06/21/19 07:38 RBC 2.78 M/mm3 (3.60-5.2) L 06/21/19 07:38 Hgb 8.3 GM/dL (10.7-15.3) L 06/21/19 07:38 Hct 24.7 % (32.4-45.2) L D 06/21/19 07:38 MCV 88.8 fl (80-96) 06/21/19 07:38 MCH 29.8 pg (25.7-33.7) 06/21/19 07:38 MCHC 33.5 g/dl (32.0-36.0) 06/21/19 07:38 RDW 15.9 % (11.6-15.6) H 06/21/19 07:38 Plt Count 184 K/MM3 (134-434) 06/21/19 07:38 MPV 9.1 fl (7.5-11.1) 06/21/19 07:38 Absolute Neuts (auto) 10.0 K/mm3 (1.5-8.0) H 06/21/19 07:38 Neutrophils % 82.5 % (42.8-82.8) 06/21/19 07:38 Lymphocytes % 12.5 % (8-40) D 06/21/19 07:38 Monocytes % 4.4 % (3.8-10.2) 06/21/19 07:38 Eosinophils % 0.2 % (0-4.5) 06/21/19 07:38 Basophils % 0.4 % (0-2.0) 06/21/19 07:38 Nucleated RBC % 0 % (0-0) 06/21/19 07:38 Problem List - Problems (1) 39 weeks gestation of Problems reviewed: Yes Code(s): Z3A.39 - 39 WEEKS GESTATION OF (2) Status post normal vaginal delivery Problems reviewed: Yes Code(s): [id number] - Assessment/Plan Status post vaginal delivery Analgesia as needed Continue close observation.
[2019-06-21] MEDS ORDERED: oxyCODONE HCL 5 MG TABLET PO PRN (11:05)
[2019-06-21] MEDS ORDERED: ACETAMINOPHEN 325 MG TABLET (FP) PO PRN (11:05)
[2019-06-21] MEDS ORDERED: SENNOSIDES/DOCUSATE COMBO (SENNA PLUS) TABLET (UD) PO PRN (22:00)
[2019-06-22] MEDS: ACETAMINOPHEN 325 MG TABLET (FP) PO PRN ×5 (02:00→20:40)
[2019-06-22] MEDS: IBUPROFEN 600 MG TABLET (FP) PO PRN ×5 (02:01→20:41)
[2019-06-22] MEDS: DEXTROSE 5%-LACTATED RINGERS 1,000 ML IV SCH ×2 (02:03→02:04)
[2019-06-22] MEDS: OXYTOCIN 30 UNITS in 0.9% NS 30 UNIT/500 ML INFUS.BAG IVPB SCH (02:03)
[2019-06-22] MEDS: OXYTOCIN 20 UNITS in 0.9% NS 20 UNIT/1,000 ML INFUS.BAG IV SCH (02:03)
[2019-06-22] MEDS: FENTANYL/BUPIVACAINE/NS/PF - PCEA - 50 ML DISP.SYRIN EP SCH (02:04)
--- NOTE | 2019-06-22 09:56 | PN ---
Post Progress Note Post Day: 2 Type of Delivery: Vital Signs: Vital Signs Temperature 98.4 F 06/22/19 09:40 Pulse Rate 76 06/22/19 09:40 Respiratory Rate 18 06/22/19 09:40 Blood Pressure 120/70 06/22/19 09:40 O2 Sat by Pulse Oximetry (%) 97 06/20/19 16:25 Breast Exam: Yes: Soft Uterus: Yes: Fundus Firm Abdomen/GI: Yes: Abdomen soft, Tolerating PO Lochia: Yes: Rubra Lochia, amount: Moderate Extremities: Yes: Calves non-tender Perineum: Yes: Laceration (Healing) Activity: Other (Difficulty in ambulation due to pubic symphysis separation after delivery) - Labs Labs: CBC WBC 12.1 K/mm3 (4.0-10.0) H 06/21/19 07:38 RBC 2.78 M/mm3 (3.60-5.2) L 06/21/19 07:38 Hgb 8.3 GM/dL (10.7-15.3) L 06/21/19 07:38 Hct 24.7 % (32.4-45.2) L D 06/21/19 07:38 MCV 88.8 fl (80-96) 06/21/19 07:38 MCH 29.8 pg (25.7-33.7) 06/21/19 07:38 MCHC 33.5 g/dl (32.0-36.0) 06/21/19 07:38 RDW 15.9 % (11.6-15.6) H 06/21/19 07:38 Plt Count 184 K/MM3 (134-434) 06/21/19 07:38 MPV 9.1 fl (7.5-11.1) 06/21/19 07:38 Absolute Neuts (auto) 10.0 K/mm3 (1.5-8.0) H 06/21/19 07:38 Neutrophils % 82.5 % (42.8-82.8) 06/21/19 07:38 Lymphocytes % 12.5 % (8-40) D 06/21/19 07:38 Monocytes % 4.4 % (3.8-10.2) 06/21/19 07:38 Eosinophils % 0.2 % (0-4.5) 06/21/19 07:38 Basophils % 0.4 % (0-2.0) 06/21/19 07:38 Nucleated RBC % 0 % (0-0) 06/21/19 07:38 Problem List - Problems (1) 39 weeks gestation of Problems reviewed: Yes Code(s): Z3A.39 - 39 WEEKS GESTATION OF (2) Status post normal vaginal delivery Problems reviewed: Yes Code(s): [id number] - Assessment/Plan Status post vaginal delivery Pubic symphysis separation Analgesia as needed Continue close observation. Possible D/C home in am
[2019-06-22] MEDS: FERROUS SO4 325 MG TABLET (FP) PO SCH ×2 (10:38→21:16)
[2019-06-22] MEDS: PRENATAL VITAMINS W/ FOLIC ACID TABLET (FP) PO SCH (10:38)
--- NOTE | 2019-06-23 02:23 | DS ---
Physical Exam-MARKETING TECHNOLOGY SPECIALIST Vital Signs: Vital Signs Temperature 98 F 06/22/19 21:17 Pulse Rate 82 06/22/19 21:17 Respiratory Rate 18 06/22/19 21:17 Blood Pressure 111/65 06/22/19 21:17 O2 Sat by Pulse Oximetry (%) 97 06/20/19 16:25 Constitutional: No: No Distress Eyes: Yes: Conjunctiva Clear HENT: Yes: Atraumatic Neck: Yes: Supple Cardiovascular: Yes: Regular Rate and Rhythm Respiratory: Yes: Regular Gastrointestinal: Yes: Normal Bowel Sounds Pelvis: Yes: WNL External Genitalia: Yes: Normal Vaginal Exam: Yes: Normal Cervix: Yes: Normal Uterus: Yes: Firm ....Post : Yes: Uterus firm, Moderate lochia serosa Breast(s): Yes: WNL Musculoskeletal: Yes: WNL Extremities: Yes: WNL Neurological: Yes: Alert, Oriented ...Motor Strength: WNL Psychiatric: Yes: Alert, Oriented Labs: CBC, BMP 06/21/19 07:38 06/20/19 05:45 Delivery - Delivery Vaginal Delivery: Spontaneous Type of Anesthesia: Epidural Episiotomy/Laceration: 2nd degree EBL (cc): 400 Delivery, Single - Stages of Labor Date 1st Stage Initiatied: 06/20/19 Time 1st Stage Initiated: 08:00 Date 2nd Stage Initiated: 06/20/19 Time 2nd Stage Initiated: 14:00 Date of Delivery: 06/20/19 Time of Delivery: 14:26 Time Placenta Delivered: 14:30 - 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 Present: No Gender: Male Weight: 9 lb 15 oz Position: Left, OT Total Hours ROM (Hrs/Mins): 7Hrs/55Mins - 1 Minute Total Score: 3 5 Minutes Total Score: 6 - [place] Feeding Plan Initial Plan: Elected not to breastfeed exclusively throughout hospitalization Discharge Summary Problems reviewed: Yes Reason For Visit: ADMIT LABOR Current Active Problems 39 weeks gestation of (Acute) Abdominal pain affecting (Acute) Labor established (Acute) Status post normal vaginal delivery (Acute) Procedures: Principal: Normal spontaneous vaginal delivery Hospital Course: Patient developed pubic symphysis separation after delivery of a large . She was allowed to stay for one more day for observation and pain management. Health Concerns: None Plan of Treatment: Analgesia F/U in clinic in 6 weeks Goals: Resume normal activities in 6 weeks Condition: Fair - Instructions Diet, Activity, Other Instructions: Regular diet No driving, no lifting x 4 weeks F/U in clinic in 4 weeks Referrals: Babak Patton MD [Primary Care Provider] - Disposition: HOME - Home Medications Comprehensive Discharge Medication List: Ambulatory Orders Vitamins (Sjr) - 1 tab PO DAILY 06/20/19
--- NOTE | 2019-06-23 06:41 | PN ---
Post Progress Note - Subjective Subjective: Patient reports decreased lochia, ambulating, voiding, desires to be discharged to be with baby. Baby transferred out after shoulder distocia complication Post Day: 3 Type of Delivery: Vital Signs: Vital Signs Temperature 98 F 06/22/19 21:17 Pulse Rate 82 06/22/19 21:17 Respiratory Rate 18 06/22/19 21:17 Blood Pressure 111/65 06/22/19 21:17 O2 Sat by Pulse Oximetry (%) 97 06/20/19 16:25 Breast Exam: Yes: Other (deferred) Uterus: Yes: Fundus Firm Abdomen/GI: Yes: Abdomen soft Lochia, amount: Moderate Extremities: Yes: Calves non-tender Activity: Ambulating - Labs Labs: CBC WBC 12.1 K/mm3 (4.0-10.0) H 06/21/19 07:38 RBC 2.78 M/mm3 (3.60-5.2) L 06/21/19 07:38 Hgb 8.3 GM/dL (10.7-15.3) L 06/21/19 07:38 Hct 24.7 % (32.4-45.2) L D 06/21/19 07:38 MCV 88.8 fl (80-96) 06/21/19 07:38 MCH 29.8 pg (25.7-33.7) 06/21/19 07:38 MCHC 33.5 g/dl (32.0-36.0) 06/21/19 07:38 RDW 15.9 % (11.6-15.6) H 06/21/19 07:38 Plt Count 184 K/MM3 (134-434) 06/21/19 07:38 MPV 9.1 fl (7.5-11.1) 06/21/19 07:38 Absolute Neuts (auto) 10.0 K/mm3 (1.5-8.0) H 06/21/19 07:38 Neutrophils % 82.5 % (42.8-82.8) 06/21/19 07:38 Lymphocytes % 12.5 % (8-40) D 06/21/19 07:38 Monocytes % 4.4 % (3.8-10.2) 06/21/19 07:38 Eosinophils % 0.2 % (0-4.5) 06/21/19 07:38 Basophils % 0.4 % (0-2.0) 06/21/19 07:38 Nucleated RBC % 0 % (0-0) 06/21/19 07:38 Assessment/Plan PPD # 3 s/p VD complicated by shoulder distocia. was transferred out. Limited mobility following delivery improved and patient reports ability to walk. Patient desires discharge today. Patient previously seen and evaluated by Dr Lawler and discharge documentation/requirements completed. -D/C -F/U at [facility] Call MD with any questions
[2019-06-23] MEDS: ACETAMINOPHEN 325 MG TABLET (FP) PO PRN (08:47)
[2019-06-23] MEDS: IBUPROFEN 600 MG TABLET (FP) PO PRN (08:47)
[2019-06-23] MEDS: FERROUS SO4 325 MG TABLET (FP) PO SCH (09:07)
[2019-06-23] MEDS: PRENATAL VITAMINS W/ FOLIC ACID TABLET (FP) PO SCH (09:07)
[2019-06-23 09:13] VITALS: TEMP 98
[2019-06-23 09:21] VITALS: BP 119/71; PULSE 82
== END 2019-06-23 16:05 | disposition home or self-care (01) | DRG 560 ==
LOC: JER 00:57 → JLDR 04:30 → J3W 17:18
PROVIDERS: ADMIT Obstetrics & Gynecology; ATTEND Obstetrics & Gynecology
PROC: 10E0XZZ Delivery of Products of Conception, External Approach (ICD-10-PCS; principal; 2019-06-20)
PROC: 0KQM0ZZ Repair Perineum Muscle, Open Approach (ICD-10-PCS; 2019-06-20)
DX: O69.81X0 Labor and delivery complicated by cord around neck, without compression, not applicable or unspecified (principal); O70.1 Second degree perineal laceration during delivery; O36.63X0 Maternal care for excessive fetal growth, third trimester, not applicable or unspecified; Z3A.39 39 weeks gestation of pregnancy; Z37.0 Single live birth
CPT/HCPCS: 36415; 59409; 80048; 85025; 85610; 85730; 86593; 86762; 86850; 86900; 86901; 87340; 87389; 99283-25; J2175

== ENCOUNTER 2022-02-09 15:09 | Emergency (ER) | payer OTHER ==
[2022-02-09 15:25] VITALS: BP 102/66; PULSE 70; TEMP 98; BMI 31.1
[2022-02-09] MEDS ORDERED: MAG HYDROX/AL HYDROX/SIMETH 30 ML UNIT-DOSE CUP PO ONE (16:30)
[2022-02-09] MEDS ORDERED: ONDANSETRON 4 MG/2 ML VIAL IVPUSH ONE (16:30)
[2022-02-09] MEDS ORDERED: FAMOTIDINE 20 MG/50 ML IVPB 20 MG/50 ML MG IVPB ONE (16:30)
[2022-02-09] MEDS ORDERED: SODIUM CHLORIDE 0.9% 500 ML INFUS.BAG IV ONE (16:30)
[2022-02-09] MEDS ORDERED: ONDANSETRON 4 MG/2 ML VIAL ONE (16:47)
[2022-02-09] MEDS ORDERED: MAG HYDROX/AL HYDROX/SIMETH 30 ML UNIT-DOSE CUP ONE (16:47)
[2022-02-09] MEDS ORDERED: FAMOTIDINE 10 MG/ML VIAL IVPB ONE (16:48)
[2022-02-09 18:12] LABS: BASO % 0.5 % (0-2.0); EOS % 8.5 % (0-4.5); HEMATOCRIT 38.9 % (32.4-45.2); HEMOGLOBIN 13.1 GM/dL (10.7-15.3); LYMPH % 22.4 % (8-40); MCH 28.6 pg (25.7-33.7); MCHC 33.7 g/dl (32.0-36.0); MEAN CELL VOLUME 84.7 fl (80-96); MEAN PLT VOLUME 8.4 fl (7.5-11.1); MONO % 5.4 % (3.8-10.2); NEUT % 63.2 % (42.8-82.8); PLATELET COUNT 308 10^3/uL (134-434); RBC 4.59 M/mm3 (3.60-5.2); RDW 13.8 % (11.6-15.6); WHITE BLOOD COUNT 9.6 K/mm3 (4.0-10.0)
[2022-02-09 18:17] LABS: HCG,QUALITATIVE URINE Negative
[2022-02-09 18:18] LABS: URINE APPEARANCE CLEAR; URINE BILIRUBIN NEGATIVE (NEGATIVE); URINE COLOR YELLOW; URINE GLUCOSE (UA) NEGATIVE (NEGATIVE); URINE KETONE NEGATIVE (NEGATIVE); URINE LEUK ESTERASE NEGATIVE (NEGATIVE); URINE NITRITE NEGATIVE (NEGATIVE); URINE PROTEIN NEGATIVE (NEGATIVE); URINE UROBILINOGEN 0.2 mg/dL (0.2-1.0)
[2022-02-09 18:30] LABS: ALBUMIN 3.9 g/dl (3.4-5.0); BLOOD UREA NITROGEN 6.8 mg/dL (7-18); CALCIUM 9.4 mg/dL (8.5-10.1)
[2022-02-09 18:33] LABS: CREATININE 0.6 mg/dL (0.55-1.3)
[2022-02-09 18:34] LABS: BILIRUBIN,TOTAL 0.5 mg/dL (0.2-1)
[2022-02-09 18:35] LABS: TOT PROT 7.5 g/dl (6.4-8.2)
== END 2022-02-09 19:03 | disposition home or self-care (01) ==
LOC: JERFT 15:09
PROC: 3E033GC Introduction of Other Therapeutic Substance into Peripheral Vein, Percutaneous Approach (ICD-10-PCS; principal; 2022-02-09)
PROC: 3E033GC Introduction of Other Therapeutic Substance into Peripheral Vein, Percutaneous Approach (ICD-10-PCS; 2022-02-09)
DX: R10.13 Epigastric pain (principal)
CPT/HCPCS: 36415; 76705-TC; 80053; 81003; 83690; 84703; 85025; 87086; 99284-25